=== PATIENT | male | born 1995 | race Asian ===

== ENCOUNTER 2019-06-28 10:03 | Emergency (ER) | payer OTHER ==
[~2019-06-28] VITALS: Ht 167.6 cm; Wt 50.3 kg
[2019-06-28] MEDS ORDERED: ACETAMINOPHEN 325 MG TAB PO ONE ×2 (10:08→10:15)
[2019-06-28 10:59] VITALS: BP 125/79
== END 2019-06-28 12:10 | disposition home or self-care (01) ==
LOC: ER 10:03
DX: J11.1 Influenza due to unidentified influenza virus with other respiratory manifestations (principal)
CPT/HCPCS: 71046; 87804